=== PATIENT | female | born 1965 | race Caucasian/White ===

== ENCOUNTER 2017-01-15 11:46 | Inpatient (IN) | payer OTHER ==
[~2017-01-15] VITALS: Ht 162.6 cm; Wt 83.9 kg
[~2017-01-15 11:46] MED LIST: ALPR0.5T PO; CARI350T PO; HYDR-507 PO
--- NOTE | 2017-01-15 12:17 | NUR ---
Pt evaluated by by MD in room 5A for congestion and cough x 4 days.
[2017-01-15 13:08] LABS: BASOPHILS % (AUTO) 0.2 % (0.0-2.0); EOSINOPHILS # (AUTO) 0.1 K/uL (0.0-0.7); EOSINOPHILS % (AUTO) 1.1 % (0.0-7.0); HEMOGLOBIN 13.8 G/DL (12.0-16.0); LYMPHOCYTES # (AUTO) 1.4 K/UL (0.8-4.8); LYMPHOCYTES % (AUTO) 11.7 % (20.5-51.5); MEAN CORPUSCULAR HEMOGLOBIN 31.2 UUG (27.0-31.0); MEAN CORPUSCULAR HGB CONC 34 g/dL (32.0-37.0); MEAN CORPUSCULAR VOLUME 92.6 FL (81.0-99.0); MONOCYTES # (AUTO) 0.7 K/UL (0.1-1.30); MONOCYTES % (AUTO) 5.8 % (0.0-11.0); NEUTROPHILS # (AUTO) 9.7 K/UL (1.8-8.9); NEUTROPHILS % (AUTO) 81.2 % (38.5-71.5); PLATELET COUNT (AUTO) 241 K/UL (150-450); RED BLOOD CELL COUNT(AUTO) 4.43 MIL/UL (4.2-5.4); WHITE BLOOD COUNT (AUTO) 11.9 K/UL (4.0-11.2)
[2017-01-15 13:09] LABS: POTASSIUM 3.7 mmol/L (3.5-5.1)
[2017-01-15 13:15] LABS: BILIRUBIN,DIRECT 0.1 mg/dL (0.0-0.2); BILIRUBIN,TOTAL 0.5 mg/dL (0.2-1.0)
--- NOTE | 2017-01-15 13:22 | NUR ---
Pt reports some relief after a breathing treatment. Able to ambulate with a steady gait to the restroom. VSS, nad noted, cont to monitor.
[2017-01-15 14:21] LABS: BAND % (MANUAL) 19 % (0-10); LYMPHOCYTES % (MANUAL) 14 % (20-40); MONOCYTES % (MANUAL) 4 % (2-10); NEUTROPHILS % (MANUAL) 63 % (42-75)
--- NOTE | 2017-01-15 16:26 | NUR ---
Report givent to MINGO Alvarado. Pt transfered to Med/Surg unit. VSS, nad noted at this time.
[2017-01-15 16:35] VITALS: BP 139/67
--- NOTE | 2017-01-15 17:30 | NUR ---
Received pt from ER. Pt wheezing will give solumedrol as ordered when verified. Call light is within reach.
[2017-01-15 18:22] LABS: *BILIRUBIN,URIN NEGATIVE (NEGATIVE); *BLOOD, URINE Trace-lysed (NEGATIVE); *COLOR,URINE YELLOW (YELLOW); *KETONES,URINE NEGATIVE (NEGATIVE); *PROTEIN,URINE NEGATIVE (NEGATIVE); *UROBILINOGEN,URINE 0.2 E.U./dl (NORMAL); LEUKOCYTE ESTERASE ,URINE NEGATIVE (NEGATIVE); NITRITE, URINE NEGATIVE (NEGATIVE); PH,URINE 5.5 (5.0-8.0)
--- NOTE | 2017-01-15 18:30 | NUR ---
Pt is in no acute distress. Specimen sputum, ua, and INFLUENZA A/B sent. IVF started as ordered. Admission to be finished by shift superintendent caustic cresylate. Call light is within reach.
--- NOTE | 2017-01-15 18:30 | NUR ---
Dr putnam here to see patient notified of wheezing. "Im breathing better after the breathing tx from ER. Solumedrol given as ordered. Pt coughing gave honey to suppress cough effective.
[2017-01-15 18:36] LABS: UGLUCOSE 1+ (NEGATIVE)
[2017-01-15 18:37] LABS: *CLARITY,URINE HAZY (CLEAR)
[2017-01-15 18:44] LABS: BACTERIA,URINE MODERATE /HPF (NONE SEEN); SQUAMOUS EPITHELIAL CELL,UR MANY /HPF (NONE SEEN); WBC,URINE 0-3 /HPF (0-3)
--- NOTE | 2017-01-15 20:00 | NUR ---
Received pt from am shift:pt's A/A/O x4;newly admission today with Dx of COPD;pt stated that"I'm getting better but still cough.I need cough medication";her need's met:gave Cepacol to pt as order;warm water's given to pt as request:pt tolerated well.all need's provide.kept call-light within reach.
[2017-01-15 20:43] VITALS: BP 114/63
--- NOTE | 2017-01-15 23:15 | NUR ---
Pt c/o headache and can't sleep,requested for sleeping pill:called and got order for ambien:gave to pt as record;educated to pt.bed alarm's on for safety noted.continued monitoring to pt.
--- NOTE | 2017-01-16 02:30 | NUR ---
Called [facility] to give HHN Rx as PRN order due to pt c/o mild SOB;pt stated that"I coughed a lot and went to bathroom I felt I can't breath";Warm tea and honey was f=given to pt as request;pt stated that she felt better after she got everything.kept comfort.continued monitoring to pt.
[2017-01-16 05:00] VITALS: BP 100/48
[2017-01-16 06:57] LABS: BASOPHILS % (AUTO) 0.3 % (0.0-2.0); EOSINOPHILS % (AUTO) 0.4 % (0.0-7.0); HEMATOCRIT 35.9 % (37-47); HEMOGLOBIN 12.1 G/DL (12.0-16.0); LYMPHOCYTES # (AUTO) 0.9 K/UL (0.8-4.8); LYMPHOCYTES % (AUTO) 9.5 % (20.5-51.5); MEAN CORPUSCULAR HEMOGLOBIN 31.3 UUG (27.0-31.0); MEAN CORPUSCULAR HGB CONC 34 g/dL (32.0-37.0); MONOCYTES # (AUTO) 0.3 K/UL (0.1-1.30); MONOCYTES % (AUTO) 3.4 % (0.0-11.0); NEUTROPHILS # (AUTO) 8.2 K/UL (1.8-8.9); NEUTROPHILS % (AUTO) 86.4 % (38.5-71.5); PLATELET COUNT (AUTO) 229 K/UL (150-450); RED BLOOD CELL COUNT(AUTO) 3.86 MIL/UL (4.2-5.4); WHITE BLOOD COUNT (AUTO) 9.4 K/UL (4.0-11.2)
[2017-01-16 07:16] LABS: THYROID STIMULATING HORMONE 0.386 mIU/mL (0.358-3.740)
[2017-01-16 07:19] LABS: BILIRUBIN,TOTAL 0.2 mg/dL (0.2-1.0); CREATININE 0.8 mg/dL (0.6-1.3); MAGNESIUM 2.1 mg/dL (1.8-2.4); PHOSPHOROUS 2.8 mg/dL (2.5-4.9); POTASSIUM 3.6 mmol/L (3.5-5.1); TOTAL PROTEIN, SERUM 7.1 g/dL (6.4-8.2)
--- NOTE | 2017-01-16 08:02 | NUR ---
Awake, alert, oriented x 4. Noted shortness of breath on exertion. Due HHN given. IVF infusing. CXR done.
[2017-01-16 11:07] VITALS: BP 119/64
--- NOTE | 2017-01-16 11:20 | NUR ---
With bouts of cough. Robitussin AC given as ordered.
[2017-01-16 15:12] VITALS: BP 122/56
--- NOTE | 2017-01-16 17:00 | NUR ---
Vomited dinner and with nose bleed. Assisted back to bed. Gauze applied to left nostril. Denies further nausea.
--- NOTE | 2017-01-16 18:36 | NUR ---
Tolerated soup. Nose bleeding stopped. Not in distress
[2017-01-16 20:00] VITALS: BP 135/70
[2017-01-17 04:00] VITALS: BP 117/64
--- NOTE | 2017-01-17 05:30 | NUR ---
PT TOOK A SHOWER. PT IS INDEPENDENT, AMBULATORY.
--- NOTE | 2017-01-17 06:00 | NUR ---
PATIENT SLEPT INTERMITTENTLY, IN NO ACUTE DISTRESS. BREATHING TX ORDERED. CALL LIGHT WITHIN REACH. WILL CONTINUE TO MONITOR.
[2017-01-17 07:45] LABS: BILIRUBIN,TOTAL 0.1 mg/dL (0.2-1.0); CREATININE 0.8 mg/dL (0.6-1.3); MAGNESIUM 2.1 mg/dL (1.8-2.4); PHOSPHOROUS 3.1 mg/dL (2.5-4.9); POTASSIUM 3.4 mmol/L (3.5-5.1); TOTAL PROTEIN, SERUM 6.9 g/dL (6.4-8.2)
--- NOTE | 2017-01-17 07:45 | NUR ---
Awake, alert, oriented x 4. Noted shortness of breath on exertion. pt refusing to start i/v heplock and i/v fluids ,call light with in reach ,breakfast served.
[2017-01-17 08:20] LABS: BASOPHILS % (AUTO) 0.1 % (0.0-2.0); EOSINOPHILS % (AUTO) 0.2 % (0.0-7.0); HEMATOCRIT 34.3 % (37-47); HEMOGLOBIN 11.7 G/DL (12.0-16.0); LYMPHOCYTES # (AUTO) 1.9 K/UL (0.8-4.8); LYMPHOCYTES % (AUTO) 10.7 % (20.5-51.5); MEAN CORPUSCULAR HEMOGLOBIN 31.7 UUG (27.0-31.0); MEAN CORPUSCULAR HGB CONC 34 g/dL (32.0-37.0); MEAN CORPUSCULAR VOLUME 93.1 FL (81.0-99.0); MONOCYTES % (AUTO) 5.6 % (0.0-11.0); NEUTROPHILS # (AUTO) 15.3 K/UL (1.8-8.9); NEUTROPHILS % (AUTO) 83.4 % (38.5-71.5); PLATELET COUNT (AUTO) 283 K/UL (150-450); RED BLOOD CELL COUNT(AUTO) 3.69 MIL/UL (4.2-5.4)
[2017-01-17 09:10] LABS: WHITE BLOOD COUNT (AUTO) 18.2 K/UL (4.0-11.2)
[2017-01-17 10:28] LABS: BAND % (MANUAL) 15 % (0-10); LYMPHOCYTES % (MANUAL) 13 % (20-40); MONOCYTES % (MANUAL) 2 % (2-10); NEUTROPHILS % (MANUAL) 70 % (42-75)
[2017-01-17 11:27] LABS: IRON, SERUM 62 ug/dL (50-175)
[2017-01-17 11:53] VITALS: BP 107/67
[2017-01-17] MEDS ORDERED: ALBU2.5V7 NEB (13:16)
[2017-01-17] MEDS ORDERED: LEVO500T2 PO (13:16)
[2017-01-17] MEDS ORDERED: NICO1PAT28 TD (13:16)
[2017-01-17] MEDS ORDERED: DOCU100C36 PO (13:16)
[2017-01-17] MEDS ORDERED: ACET325T53 PO (13:16)
[2017-01-17] MEDS ORDERED: PRED-170 PO (13:16)
[2017-01-17] MEDS ORDERED: Benzocaine/Menth/Cetylpyrd Cl MM (13:16)
[2017-01-17] MEDS ORDERED: GUAI5SYR4 PO (13:16)
[2017-01-17] MEDS ORDERED: IPRA0.2S6 NEB (13:16)
[2017-01-17] MEDS ORDERED: LACT1CAP57 PO (13:16)
[2017-01-17] MEDS ORDERED: PRED20TA PO (13:16)
[2017-01-17] MEDS ORDERED: PRED10TA PO (13:16)
--- NOTE | 2017-01-17 14:34 | NUR ---
d/c orders received noted and carried out.d/c instructions given to the pt.pt left the facility via private car in stable condition.
== END 2017-01-17 14:30 | disposition home or self-care (01) | DRG 140 ==
LOC: ER 11:48 → MED 16:13
PROVIDERS: ADMIT Internal Medicine; ATTEND Internal Medicine
DX: J44.0 Chronic obstructive pulmonary disease with (acute) lower respiratory infection (principal); J18.9 Pneumonia, unspecified organism; E44.0 Moderate protein-calorie malnutrition; D68.9 Coagulation defect, unspecified; J20.9 Acute bronchitis, unspecified; J44.1 Chronic obstructive pulmonary disease with (acute) exacerbation; Z98.84 Bariatric surgery status; F17.210 Nicotine dependence, cigarettes, uncomplicated; E87.6 Hypokalemia; E78.5 Hyperlipidemia, unspecified; E66.9 Obesity, unspecified; Z68.31 Body mass index [BMI] 31.0-31.9, adult; M46.82 Other specified inflammatory spondylopathies, cervical region; Z96.89 Presence of other specified functional implants; K21.9 Gastro-esophageal reflux disease without esophagitis; K59.00 Constipation, unspecified; Z83.3 Family history of diabetes mellitus; T38.0X5A Adverse effect of glucocorticoids and synthetic analogues, initial encounter; Y92.89 Other specified places as the place of occurrence of the external cause; D72.829 Elevated white blood cell count, unspecified; D64.9 Anemia, unspecified
CPT/HCPCS: 36415; 70030-TC; 71010; 83550; 83605; 83735; 84100; 84443; 84703; 85025; 85730; 87040; 87070; 87086; 87400; 93005; 94640; 94664; A4663; J0696; J1956; J2920; J2930; J3590; J7030; J7040; J7060; J7512

== ENCOUNTER 2017-06-18 19:47 | Emergency (ER) | payer OTHER ==
[~2017-06-18] VITALS: Ht 162.6 cm; Wt 81.6 kg
[~2017-06-18 19:47] MED LIST changes: +ACET325T53 PO; +ALBU2.5V7 NEB; -ALPR0.5T PO; +Benzocaine/Menth/Cetylpyrd Cl MM; -CARI350T PO; +DOCU100C36 PO; +GUAI5SYR4 PO; -HYDR-507 PO; +IPRA0.2S6 NEB; +LACT1CAP57 PO; +LEVO500T2 PO; +NICO1PAT28 TD; +PRED-170 PO; +PRED10TA PO; +PRED20TA PO
--- NOTE | 2017-06-18 20:17 | NUR ---
RT called for breathing tx per ER MD.
[2017-06-18] MEDS: ALBUTEROL SULFATE 2.5 MG/3 ML NEBU NEB ONE (20:28)
[2017-06-18] MEDS: IPRATROPIUM BROMIDE 0.5 MG/2.5 ML NEBU NEB ONE (20:28)
[2017-06-18] MEDS ORDERED: ALBUTEROL SULFATE 2.5 MG/3 ML NEBU ONE (20:40)
[2017-06-18] MEDS ORDERED: IPRATROPIUM BROMIDE 0.5 MG/2.5 ML NEBU ONE (20:40)
[2017-06-18 20:55] VITALS: BP 113/67
--- NOTE | 2017-06-18 20:56 | NUR ---
Patient discharged to home in stable conditon. Written and verbal after care instructions given. Patient verbalizes understanding of instructions.
== END 2017-06-18 20:57 | disposition home or self-care (01) ==
LOC: ER 19:49
DX: J44.1 Chronic obstructive pulmonary disease with (acute) exacerbation (principal); J06.9 Acute upper respiratory infection, unspecified; K21.9 Gastro-esophageal reflux disease without esophagitis; Z88.1 Allergy status to other antibiotic agents; F17.200 Nicotine dependence, unspecified, uncomplicated
CPT/HCPCS: A4663; J3590